=== PATIENT | male | born 1940 | race Caucasian/White ===

== ENCOUNTER → 2023-03-04 | Outpatient (CLI) | payer MEDICARE ==
[2023-03-04 13:29] LABS: BASOPHILS ABSOLUTE AUTO 0.04 K/mm3 (0.00-0.23); BASOPHILS PERCENT AUTO 1 % (0-2); EOSINOPHILS PERCENT AUTO 2 % (0-6); Hematocrit 41.6 % (37.0-53.0); IMMATURE GRAN ABSOLUTE AUTO 0.01 K/mm3 (0.00-0.10); IMMATURE GRAN PERCENT AUTO 0 % (0-1); LYMPHOCYTES ABSOLUTE AUTO 1.17 K/mm3 (0.84-5.20); LYMPHOCYTES PERCENT AUTO 26 % (21-46); MONOCYTES ABSOLUTE AUTO 0.51 K/mm3 (0.16-1.47); MONOCYTES PERCENT AUTO 12 % (4-13); Mean Corpuscular HGB 29.7 pg (26.0-34.0); Mean Corpuscular HGB Conc 33.7 g/dL (31.5-36.5); Mean Corpuscular Volume 88 fL (80-100); NEUTROPHILS ABSOLUTE AUTO 2.62 K/mm3 (1.96-9.15); NEUTROPHILS PERCENT AUTO 59 % (41-73); Platelet Count 213 K/mm3 (150-400); RDW Coefficient Variation 13.5 % (11.7-14.2); RDW Standard Deviation 43.8 fL (35.1-46.3); Red Blood Cell Count 4.72 M/mm3 (4.30-5.90); White Blood Cell Count 4.45 K/mm3 (4.00-11.30)
[2023-03-04 13:39] LABS: Albumin, Blood 4.2 g/dL (3.4-5.0); Albumin/Globulin Ratio 1.1 (0.8-1.8); Bilirubin, Total 0.7 mg/dL (0.1-1.0); Bun/Creatinine Ratio 16.2 (12.0-20.0); Calcium, Blood 9.1 mg/dL (8.5-10.1); Creatinine, Blood 1.3 mg/dL (0.60-1.20); Potassium, Blood 4.1 mmol/L (3.5-5.5); Total Protein, Blood 8.2 g/dL (6.4-8.2)
== END | disposition home or self-care (01) ==
LOC: LAB 13:24 → LAB SHORT 13:24
PROVIDERS: Family Medicine
DX: R22.41 Localized swelling, mass and lump, right lower limb (principal)
CPT/HCPCS: 80053; 85025

== ENCOUNTER 2023-03-12 09:56 | Emergency (ER) | payer MEDICARE ==
[~2023-03-12] VITALS: Ht 177.8 cm; Wt 83.9 kg
[2023-03-12 10:15] VITALS: BP 153/80
== END 2023-03-12 13:10 | disposition home or self-care (01) ==
LOC: ER 09:56
DX: I87.2 Venous insufficiency (chronic) (peripheral) (principal)
CPT/HCPCS: 72193; A9270; Q9967

== ENCOUNTER 2024-10-20 14:56 | Observation (INO) | payer MEDICARE ==
[~2024-10-20] VITALS: Ht 177.8 cm; Wt 82.5 kg
[2024-10-20] MEDS ORDERED: Acetaminophen 500 MG Tab PO ONE (17:00)
[2024-10-20 17:05] LABS: BASOPHILS ABSOLUTE AUTO 0.04 K/mm3 (0.00-0.23); BASOPHILS PERCENT AUTO 0 % (0-2); EOSINOPHILS ABSOLUTE AUTO 0.04 K/mm3 (0.00-0.68); EOSINOPHILS PERCENT AUTO 0 % (0-6); Hematocrit 36.4 % (37.0-53.0); Hemoglobin 11.8 g/dL (13.5-17.5); IMMATURE GRAN ABSOLUTE AUTO 0.08 K/mm3 (0.00-0.10); IMMATURE GRAN PERCENT AUTO 1 % (0-1); LYMPHOCYTES ABSOLUTE AUTO 1.02 K/mm3 (0.84-5.20); LYMPHOCYTES PERCENT AUTO 12 % (21-46); MONOCYTES PERCENT AUTO 18 % (4-13); Mean Corpuscular HGB 27.6 pg (26.0-34.0); Mean Corpuscular HGB Conc 32.4 g/dL (31.5-36.5); Mean Corpuscular Volume 85 fL (80-100); NEUTROPHILS ABSOLUTE AUTO 6.11 K/mm3 (1.96-9.15); NEUTROPHILS PERCENT AUTO 69 % (41-73); Platelet Count 244 K/mm3 (150-400); RDW Coefficient Variation 15.1 % (11.7-14.2); RDW Standard Deviation 47.2 fL (35.1-46.3); Red Blood Cell Count 4.27 M/mm3 (4.30-5.90); White Blood Cell Count 8.89 K/mm3 (4.00-11.30)
[2024-10-20 17:22] LABS: Influenza A, PCR NEGATIVE (NEGATIVE); Influenza B, PCR NEGATIVE (NEGATIVE); Resp Syncytial Virus, PCR NEGATIVE (NEGATIVE); SARS-Cov-2 (COVID-19) PCR, MMC NEGATIVE (NEGATIVE)
[2024-10-20 17:33] LABS: Albumin, Blood 2.4 g/dL (3.4-5.0); Albumin/Globulin Ratio 0.5 (0.8-1.8); Bilirubin, Total 0.8 mg/dL (0.1-1.0); Bun/Creatinine Ratio 20.4 (12.0-20.0); Calcium, Blood 8.5 mg/dL (8.5-10.1); Creatinine, Blood 1.03 mg/dL (0.60-1.20); Globulin, Blood 4.7 g/dL (2.2-4.0); Magnesium, Blood 2.2 mg/dL (1.6-2.4); Phosphorus, Blood 2.5 mg/dL (2.5-4.9); Potassium, Blood 4.1 mmol/L (3.5-5.5); Total Protein, Blood 7.1 g/dL (6.4-8.2)
[2024-10-20 18:27] LABS: Source, Urine Clean Catch
[2024-10-20 18:45] LABS: Appearance, Urine Clear (Clear); Bilirubin, Urine Neg (Neg); Blood, Urine Neg (Neg); Color, Urine Amber (P-Yellow); Glucose Qualitative, Urine Neg (Neg); Ketones, Urine Neg (Neg); Leukocyte Esterase, Urine Neg (Neg); Nitrite, Urine Neg (Neg); Protein, Urine 3+ (Neg); Urobilinogen, Urine 2+ (Normal)
[2024-10-20 18:53] LABS: Bacteria Few /hpf; Squamous Epithelial Cells Rare /hpf (Few); White Blood Cells, Urine 0-2 /hpf (0-5)
[2024-10-20 18:54] LABS: Amorphous Light (0-Heavy); Hyaline Casts 0-2 /lpf (0-2); Mucus Light (0-Heavy)
[2024-10-20] MEDS ORDERED: Ondansetron HCl 2 MG / ML 2ML Vial IV PRN (20:55)
[2024-10-20] MEDS ORDERED: NS 1,000 ML IV SCH (21:00)
[2024-10-20] MEDS ORDERED: Acetaminophen 500 MG Tab PO PRN (21:05)
[2024-10-20] MEDS ORDERED: NS 1,000 ML IV ONE (21:06)
[2024-10-20 22:50] VITALS: BP 133/71
--- NOTE | 2024-10-21 00:25 | NUR ---
ADMIT NOTE 84 YR OLD MALE ADMITTED TO FLOOR FROM THE ED WITH DX OF UPPER RESPIRATORY INFECTION. IN THE ED TEMP WAS 100, ON ARRIVAL TEMP 97.8 ORAL. ALERT TO QUESTIONS ASKED, LUNG SOUNDS DIMINISHED TO AUSCULTATION. VOICED "ARTHRIIS" OF RIGHT HAND. NOTE SOME DISCOMFORT OF RIGHT SIDE WELL. ED RN REPORTED PT WAS IN THE TRANSITION OF LIVING WITH FAMILY TO THAT OF GOING TO AN ADULT [facility], BUT THE [facility] WANTED PT ASSESSED AT THE HOSPITAL DUE TO INCREASED WEAKNESS AND DARK URINE, FEVER AND BACK PAIN. VSS. ORIENTED TO USE OF CALL LIGHT, RAILS UP X 2, CALL LIGHT IN REACH, BED IN LOW POSITION AND BED ALAARM ON FOR SAFETY. AGREES TO USE CALL LIGHT IF NEED OOB. WILL CONT TO MONITOR
--- NOTE | 2024-10-21 04:11 | NUR ---
BOAT WASHER SUMMARY ADMITTED TO FLOOR EARLIER IN THE SHIFT WITH DX OF UPPER RESP INFECTION, WAS FEBRILE IN THE ED, BUT HAS BEEN AFEBRILE SINCE ARRIVING ON FLOOR. VSS. ALERT TO QUESTIONS ASKED. NS INFUSING AT 100 ML/HR X ONE LITER. ED REPORTED HAD C/O WEAKNESS AND DARK URINE FOR A FEW DAYS PRIOR TO ADMISSION, WAS SCHEDULED TO MOVE INTO AN ADULT CENTER FROM LIVING WITH FAMILY, BUT WITH HIS SYMPTOMS, WAS ENCOURAGED TO FIRST BE ASSESSED/TREATED HERE AT THE HOSPITAL. HAS BEEN RESTING QUIETLY WITH FEW INTERRUPTIONS. ABLE TO REPOSITION SELF IN BED WITHOUT ASSIST. CALL LIGHT IN REACH, RAILS UP X 2 AND BED IN LOW POSITION FOR SAFETY. WILL CONTINUE TO MONITOR
[2024-10-21 05:37] VITALS: BP 146/71
[2024-10-21 07:19] VITALS: BP 132/67
[2024-10-21] MEDS ORDERED: Enoxaparin 40 MG/0.4 ML SYR SC SCH (09:00)
[2024-10-21] MEDS ORDERED: Aspirin 81 MG Chew PO SCH (09:00)
[2024-10-21 10:19] LABS: BASOPHILS ABSOLUTE AUTO 0.03 K/mm3 (0.00-0.23); BASOPHILS PERCENT AUTO 0 % (0-2); EOSINOPHILS ABSOLUTE AUTO 0.18 K/mm3 (0.00-0.68); EOSINOPHILS PERCENT AUTO 2 % (0-6); Hemoglobin 11.8 g/dL (13.5-17.5); IMMATURE GRAN ABSOLUTE AUTO 0.08 K/mm3 (0.00-0.10); IMMATURE GRAN PERCENT AUTO 1 % (0-1); LYMPHOCYTES ABSOLUTE AUTO 1.26 K/mm3 (0.84-5.20); LYMPHOCYTES PERCENT AUTO 14 % (21-46); MONOCYTES ABSOLUTE AUTO 1.47 K/mm3 (0.16-1.47); MONOCYTES PERCENT AUTO 17 % (4-13); Mean Corpuscular HGB Conc 32.8 g/dL (31.5-36.5); Mean Corpuscular Volume 85 fL (80-100); Mean Platelet Volume 12.1 fL (9.1-12.4); NEUTROPHILS PERCENT AUTO 66 % (41-73); Platelet Count 244 K/mm3 (150-400); RDW Coefficient Variation 14.9 % (11.7-14.2); RDW Standard Deviation 46.1 fL (35.1-46.3); Red Blood Cell Count 4.22 M/mm3 (4.30-5.90); White Blood Cell Count 8.82 K/mm3 (4.00-11.30)
[2024-10-21 11:16] LABS: Albumin, Blood 2.4 g/dL (3.4-5.0); Albumin/Globulin Ratio 0.5 (0.8-1.8); Bilirubin, Total 0.8 mg/dL (0.1-1.0); Bun/Creatinine Ratio 20.5 (12.0-20.0); Calcium, Blood 8.7 mg/dL (8.5-10.1); Creatinine, Blood 0.93 mg/dL (0.60-1.20); Globulin, Blood 4.6 g/dL (2.2-4.0); Potassium, Blood 3.9 mmol/L (3.5-5.5)
[2024-10-21] MEDS ORDERED: NS 1,000 ML IV SCH ×2 (12:50→13:35)
[2024-10-21 15:18] VITALS: BP 109/61
--- NOTE | 2024-10-21 18:07 | NUR ---
SHIFT SUMMARY: PT A&O X3. PLEASANT AND COOPERATIVE WITH CARE. PT URINE DARK YELLOW THIS AM. SPOKE WITH DR. VIDES ABOUT CONTINUING IV FLUIDS. CONTINUOUS FLUIDS INFUSING @ 125/HR. PT CHILDREN IN ROOM THIS SHIFT. UPDATES PROVIDED. PT WORKED WITH OCCUPATIONAL THERAPY - RECOMMENDING SNF. PT STATES HE HAS SMALL COUGH WHENEVER HE AWAKENS. NO EVIDENCE OF CONGESTION OF COUGH NOTED THIS SHIFT. CALL LIGHT IN REACH. BED IN LOWEST POSITION.
[2024-10-21 20:15] VITALS: BP 120/61
[2024-10-21] MEDS ORDERED: ATOR10 PO (22:07)
[2024-10-21] MEDS ORDERED: Prinivil10 MG PO (22:08)
--- NOTE | 2024-10-22 04:10 | NUR ---
SHIFT SUMMARY ADMITTED FOR WEAKNESS AND UPPER RESPIRATORY INFECTION. DNR CODE. IV FLUIDS ARE INFUSING. HE IS ON RA. REGULAR DIET. FEVER REPORTED ON PREVIOUS SHIFT. BEDREST AT THIS TIME DUE TO SEVERE WEAKNESS. AT TIMES HE WOKE UP CONFUSED THIS SHIFT CALLING OUT HIS SON'S NAME. HE HAS A HX OF DEMENTIA. A&O X2-3. HE IS EXPERIENCING FREQUENT URINATION THIS SHIFT. PLAN IS FOR PLACEMENT.
[2024-10-22 04:17] VITALS: BP 142/76
[2024-10-22 05:37] LABS: BASOPHILS ABSOLUTE AUTO 0.04 K/mm3 (0.00-0.23); BASOPHILS PERCENT AUTO 1 % (0-2); EOSINOPHILS ABSOLUTE AUTO 0.22 K/mm3 (0.00-0.68); EOSINOPHILS PERCENT AUTO 3 % (0-6); Hematocrit 34.7 % (37.0-53.0); Hemoglobin 11.3 g/dL (13.5-17.5); IMMATURE GRAN ABSOLUTE AUTO 0.09 K/mm3 (0.00-0.10); IMMATURE GRAN PERCENT AUTO 1 % (0-1); LYMPHOCYTES ABSOLUTE AUTO 1.33 K/mm3 (0.84-5.20); LYMPHOCYTES PERCENT AUTO 16 % (21-46); MONOCYTES ABSOLUTE AUTO 1.26 K/mm3 (0.16-1.47); MONOCYTES PERCENT AUTO 15 % (4-13); Mean Corpuscular HGB 27.6 pg (26.0-34.0); Mean Corpuscular HGB Conc 32.6 g/dL (31.5-36.5); Mean Corpuscular Volume 85 fL (80-100); Mean Platelet Volume 12.3 fL (9.1-12.4); NEUTROPHILS ABSOLUTE AUTO 5.44 K/mm3 (1.96-9.15); NEUTROPHILS PERCENT AUTO 65 % (41-73); Platelet Count 262 K/mm3 (150-400); RDW Coefficient Variation 14.9 % (11.7-14.2); Red Blood Cell Count 4.09 M/mm3 (4.30-5.90); White Blood Cell Count 8.38 K/mm3 (4.00-11.30)
[2024-10-22 07:16] LABS: Albumin, Blood 2.2 g/dL (3.4-5.0); Albumin/Globulin Ratio 0.5 (0.8-1.8); Bilirubin, Total 0.6 mg/dL (0.1-1.0); Calcium, Blood 8.6 mg/dL (8.5-10.1); Creatinine, Blood 1.05 mg/dL (0.60-1.20); Globulin, Blood 4.5 g/dL (2.2-4.0); Potassium, Blood 3.9 mmol/L (3.5-5.5); Total Protein, Blood 6.7 g/dL (6.4-8.2)
[2024-10-22 07:46] VITALS: BP 129/74
[2024-10-22] MEDS ORDERED: Atorvastatin 10 MG Tab PO SCH (09:00)
[2024-10-22] MEDS ORDERED: Lisinopril 10 MG Tab PO SCH (09:00)
[2024-10-22] MEDS ORDERED: Ipratropium/Albuterol SulF 2.5-0.5MG/3 ML Amp INH SCH (12:25)
[2024-10-22 15:14] VITALS: BP 119/64
--- NOTE | 2024-10-22 16:49 | NUR ---
AOX2-2 AND COOPERATIVE OF CARE. PT WORKED WITH PT AND WAS UP IN CHAIR FOR AWHILE TODAY. PT TOOK TWO PEOPLE WITH WALKER TO GET BACK TO BED. PT IS INCONTENT OF URINE. ABLE TO USE CALL LIGHT AND MAKE NEEDS KNOWN. WILL CONTINUE TO MONITOR.
[2024-10-22 20:42] VITALS: BP 132/67
[2024-10-22] MEDS ORDERED: GuaiFENesin 600 MG TabCR PO SCH (21:00)
--- NOTE | 2024-10-23 04:07 | NUR ---
SHIFT SUMMARY ADMITTED FOR WEAKNESS & UPPER RESPIRATORY INFECTION. DNR CODE. IV FLUIDS INFUSING ORDERED. PLAN IS FOR DC TO SNF, PENDING INSURANCE APPROVAL. REGULAR DIET, ALTHOUGH I HAVE BEEN GIVING HIM HIS RX IN [place]CE AT HIS REQUEST. A&O X2-3. HX OF DEMENTIA. HE IS A HEAVY 2 ASSIST TO BSC DUE TO HIS WEAKNESS. ON RA. HIS FWW IS IN THE ROOM.
[2024-10-23 04:41] VITALS: BP 112/88
[2024-10-23 07:34] VITALS: BP 129/105
[2024-10-23] MEDS ORDERED: Calcium Carbonate 500 MG Tab Chew PO ONE (12:50)
[2024-10-23] MEDS ORDERED: ASPI81CH PO (12:54)
[2024-10-23] MEDS ORDERED: MUCINEX600 MG PO (12:55)
--- NOTE | 2024-10-23 14:53 | NUR ---
PT TRANSFERED TO [facility] VIA WHEELCHAIR VAN. SON WAS IN ROOM TO TRANSFER PERSONAL BELONGINGS. PT AOX3 AND COOPERATIVE OF CARE. PT A HEAVY TO PERSON TRANSFER WITH [facility] AND WALKER. REPORT WAS CALLED TO REVIEVING BERLIN SCHULTZ AT [facility]. NO DISTRESS NOTED. PACKET SENT WITH PT.
== END 2024-10-23 14:23 | disposition hospice, inpatient (51) ==
LOC: ER 14:56 → ERHOLD 14:57 → MEDS 14:57
PROVIDERS: Emergency Medicine; Family Medicine; ADMIT Internal Medicine
DX: J06.9 Acute upper respiratory infection, unspecified (principal); R53.1 Weakness; G30.9 Alzheimer's disease, unspecified; F02.80 Dementia in other diseases classified elsewhere, unspecified severity, without behavioral disturbance, psychotic disturbance, mood disturbance, and anxiety; I10 Essential (primary) hypertension; Z86.73 Personal history of transient ischemic attack (TIA), and cerebral infarction without residual deficits
CPT/HCPCS: 0241U; 36415; 51798; 71045; 80053; 81001; 83605; 83735; 84100; 84145; 85025; 87040; 94640; 94664; 94760; 96372; 96374; 97112; 97116; 97162; 97166; 97530; 99285-25; A9270; G0378; J1650; J2405; J7030

== ENCOUNTER 2025-08-23 18:07 | Inpatient (IN) | payer MEDICARE | END 2025-08-27 13:05 | disposition home health service (06) | DRG 389 | LOC: ER 18:07 → ERHOLD 21:08 → SURS 22:45 | PROVIDERS: ADMIT Internal Medicine | PROC: 0D9670Z Drainage of Stomach with Drainage Device, Via Natural or Artificial Opening (ICD-10-PCS; principal; 2025-08-23) | DX: K56.609 Unspecified intestinal obstruction, unspecified as to partial versus complete obstruction (principal); E87.1 Hypo-osmolality and hyponatremia; D63.1 Anemia in chronic kidney disease; N18.30 Chronic kidney disease, stage 3 unspecified; G30.9 Alzheimer's disease, unspecified; F02.80 Dementia in other diseases classified elsewhere, unspecified severity, without behavioral disturbance, psychotic disturbance, mood disturbance, and anxiety; E86.0 Dehydration; R73.9 Hyperglycemia, unspecified; I49.3 Ventricular premature depolarization; Z90.49 Acquired absence of other specified parts of digestive tract; Z86.73 Personal history of transient ischemic attack (TIA), and cerebral infarction without residual deficits; Z79.1 Long term (current) use of non-steroidal anti-inflammatories (NSAID) ==

== ENCOUNTER 2025-09-05 07:54 | Inpatient (IN) | payer MEDICARE ==
[~2025-09-05] VITALS: Ht 172.7 cm; Wt 77.4 kg
[~2025-09-05 07:54] MED LIST: ACET325 PO; ACET500 PO; ASPI81CH PO; ATOR10 PO; BENZ100A PO; Calcium Carbon500 MG PO; FEROSUL325 M1 PO; Flomax0.4 MG PO; LOPE2C PO; MIRALAX17 GM PO; MUCINEX600 MG PO; NAPR550 PO; Prinivil10 MG PO; SUFLAVE POWDER1 EACH PO; [UNRECOGNIZED DRUG - OTHER] PO
[2025-09-05 08:39] LABS: BASOPHILS ABSOLUTE AUTO 0.05 K/mm3 (0.00-0.23); BASOPHILS PERCENT AUTO 1 % (0-2); EOSINOPHILS ABSOLUTE AUTO 0.11 K/mm3 (0.00-0.68); EOSINOPHILS PERCENT AUTO 2 % (0-6); Hematocrit 29.6 % (37.0-53.0); Hemoglobin 9.4 g/dL (13.5-17.5); IMMATURE GRAN ABSOLUTE AUTO 0.04 K/mm3 (0.00-0.10); IMMATURE GRAN PERCENT AUTO 1 % (0-1); LYMPHOCYTES ABSOLUTE AUTO 1.41 K/mm3 (0.84-5.20); LYMPHOCYTES PERCENT AUTO 20 % (21-46); MONOCYTES ABSOLUTE AUTO 0.74 K/mm3 (0.16-1.47); MONOCYTES PERCENT AUTO 11 % (4-13); Mean Corpuscular HGB Conc 31.8 g/dL (31.5-36.5); Mean Corpuscular Volume 86 fL (80-100); NEUTROPHILS ABSOLUTE AUTO 4.59 K/mm3 (1.96-9.15); NEUTROPHILS PERCENT AUTO 66 % (41-73); NRBC ABSOLUTE 0.00 K/mm3 (0.00-0.02); NRBC Auto 0.0 /100 WBC (0.0-0.2); Platelet Count 261 K/mm3 (150-400); RDW Coefficient Variation 15.9 % (11.7-14.2); RDW Standard Deviation 50.0 fL (35.1-46.3)
[2025-09-05 09:03] LABS: Alanine Aminotransfer (ALT/SGP 23.0 U/L (12-78); Albumin, Blood 2.8 g/dL (3.4-5.0); Albumin/Globulin Ratio 0.7 (0.8-1.8); Anion Gap 10.0 mmol/L (3-11); Aspartate Aminotrans (AST/SGOT 16.0 U/L (12-37); Bilirubin, Total 0.3 mg/dL (0.1-1.0); Blood Urea Nitrogen 26.0 mg/dL (8-24); CO2, Blood 26.0 mmol/L (21-32); Calcium, Blood 8.5 mg/dL (8.5-10.1); Chloride, Blood 107.0 mmol/L (98-108); Creatinine, Blood 1.15 mg/dL (0.60-1.20); Globulin, Blood 4.0 g/dL (2.2-4.0); Glucose, Blood 114.0 mg/dL (70-99); Magnesium, Blood 2.5 mg/dL (1.6-2.4); Potassium, Blood 4.6 mmol/L (3.5-5.5); Sodium, Blood 138.0 mmol/L (136-145); Total Protein, Blood 6.8 g/dL (6.4-8.2)
[2025-09-05] MEDS ORDERED: FLU VACC TS2025(65UP)/MF59C/PF 45 MCG/0.5 ML SYRINGE IM SCH (12:25)
[2025-09-05 14:40] VITALS: BP 130/76
--- NOTE | 2025-09-05 14:40 | NUR ---
ADMIT PT ADMITTED TO FLOOR. WATER & BROTH PROVIDED. PT ORIENTED TO ROOM. PT SON CALLED AND MESSAGE LEFT WITH NEW ROOM NUMBER. VS REVIEWED.
[2025-09-05] MEDS ORDERED: Polyethylene Glycol 3350 17 gm PO ONE (16:00)
[2025-09-05 16:05] VITALS: BP 112/61
--- NOTE | 2025-09-05 17:22 | NUR ---
SHIFT SUMMARY PT ADMITTED TODAY. DAUGHTER, YOVANNY, UPDATED ON PT. PT GIVEN MIRALAX IN PREPARATION FOR COLONOSCOPY TOMORROW. PLAN TO BE NPO AT 1100 ON 09/06/25. T PLEASANT & COOPERATIVE. RESTING IN BED. CALL LIGHT IN REACH. VS REVIEWED. NO OTHER ACUTE CHANGES IN ASSESSMENT AT THIS TIME.
[2025-09-05] MEDS ORDERED: Peg/Electrolytes 4,000 ML BTL PO ONE (18:00)
[2025-09-05 19:39] VITALS: BP 106/66
--- NOTE | 2025-09-06 02:24 | NUR ---
PATIENT HAS BEEN ABLE TO DRINK ALMOST HALF OF THE GOLYTLY. AT ABOUT 0200 HE STARTED HAVING SOME EMESIS, REDDISH STAINED.SMALL AMOUNTS HE STILL HAS HAD NO BM.
[2025-09-06 04:11] VITALS: BP 123/68
--- NOTE | 2025-09-06 05:04 | NUR ---
SHIFT SUMMARY; PATIENT SLEPT IN SHORT INTERVALS, WAS ABLE TO DRINK ALMOST HALF THE GOLYTLY, BUT OF THIS ENTRY, NO BM'S HE DID HAVE 1 BOUT OF EMESIS, A REDDISH LIQUID. ABD FIRM,
[2025-09-06 07:22] VITALS: BP 115/66
[2025-09-06] MEDS ORDERED: Peg/Electrolytes 4,000 ML BTL PO ONE (08:00)
--- NOTE | 2025-09-06 08:35 | NUR ---
CALL TO DR. HUMPHREY AT 0836 TO REPORT EPISODES OF EMESIS, 1/2 OF GOLYTELY FINISHED LAST NIGHT, NO BM AT ALL. GO LYTELY IS COMING UP. KATERIN COLORED EMESIS. NO ANSWER. WILL TRY AGAIN IN 20 MIN.
[2025-09-06] MEDS ORDERED: Enoxaparin 40 MG/0.4 ML SYR SC SCH (09:00)
--- NOTE | 2025-09-06 09:54 | NUR ---
[address] HUMPHREY TO NOTIFY OF PATIENT VOMITING AFTER 1/[address] GALL[address] HUMPHREY ADVISED TO HAVE PATIENT FINISH DAY SHIFT GOLYTELY CONTINUE ON WATER ONLY, REPORT FIRST BM, CALL IF HE VOMITS AGAIN.
[2025-09-06] MEDS ORDERED: Pantoprazole Sodium 40 MG Injection IV SCH (12:05)
[2025-09-06] MEDS ORDERED: Ondansetron HCl 2 MG / ML 2ML Vial IV PRN (12:25)
--- NOTE | 2025-09-06 13:55 | NUR ---
PT'S SON REQUESTED A PALLIATIVE CONSULT. ACCORDING TO THE PATIENT AND HIS SON, THE PATIENT WAS ADMITTED A WEEK AGO FOR NAUSEA, VOMITING AND SBO. THEY STATE HE WAS SENT BACK HOME ON A LIQUID DIET AND DIARRHEA THAT HAS CONTINUED UNTIL HE WAS READMITTED YESTERDAY WITH AN ENLARGED ABDOMEN, NAUSEA. HE IS CURRENTLY PREPPING FOR A COLONOSCOPY, BUT IS CURRENTLY VOMITING. REQUESTED DR. MANE LEON. UNSURE IF THIS HAS BEEN GIVEN YET. THIS PC RN WILL FOLLOW UP WITH BEDSIDE RN.
[2025-09-06 15:54] VITALS: BP 106/63
--- NOTE | 2025-09-06 18:04 | NUR ---
SHIFT SUMMARY PATIENT IS A&0X3-4, ON ROOM AIR WITHOUT TELE. HE IS BEDREST, CURRENTLY AND USES A WHEELCHAIR AT HIS BASELINE. FINISHED GOLYTELY TODAY, SUCCESSFULLY TAKING IN THE ENTIRE LAST 1/2 GALLON WITHOUT AN EPISODE OF EMESIS. HE STOOLED 3 RATHER LARGE TIMES, THE STOOL WAS LIQUID BROWN. ADVISED TO CONTINUE THE GOLYTELY TOMORROW UNTIL HE STOOLS CLEAR, AND THEN WE CAN D/C IT AND CALL HIM RIGHT AWAY. PATIENT IS OKAY TO HAVE CLEAR LIQUIDS THIS EVENING. PATIENT HAS BEEN COOPERATIVE WITH CARE AND USES THE CALL SYSTEM APPROPRIATELY. HIS ABDOMEN HAS NOT BEEN PAINFUL TO PALPATION. HIS BED IS LOW AND LOCKED, CALL LIGHT IN REACH.
[2025-09-06 20:56] VITALS: BP 111/59
--- NOTE | 2025-09-07 03:03 | NUR ---
SHIFT SUMMARY NO ACUTE EVENTS DURING THIS SHIFT. NPO AFTER MIDNIGHT WITH WATER AND ICE CHIPS ONLY FOR A UPPER ENDOSCOPY AND COLONOSCOPY AT 1100. ENCOURAGING FLUIDS. PT A/O X2-3, PLEASANTLY CONFUSED. REORIENTED. BED AT THE LOWEST POSITION, CALL LIGHT W/I REACH.
[2025-09-07 04:21] VITALS: BP 114/61
[2025-09-07 07:57] VITALS: BP 108/60
[2025-09-07] MEDS ORDERED: Peg/Electrolytes 4,000 ML BTL PO ONE ×2 (08:00→14:00)
--- NOTE | 2025-09-07 17:38 | NUR ---
SHIFT SUMMARY PATIENT IS A&OX3, ON ROOM AIR WITHOUT TELE. HE IS BEDREST. MORE BROWN STOOLS TODAY, HAS HAD ANOTHER 1/2 GALLON OF THE GOLYTELY. BREAKING FROM GOLKayentisLY FOR THE EVENING, HE IS TO HAVE CLEAR LIQUID DINNER, AND WILL RETURN TO GOLYTELY DRINK IN THE MORNING. PATIENT HAS BEEN COOPERATIVE WITH CARE AND USES THE CALL SYSTEM APPROPRIATELY. HIS ABDOMEN IS STILL NOT PAINFUL TO PALPATION. HIS BED IS LOW AND LOCKED, CALL LIGHT IN REACH.
[2025-09-07 19:54] VITALS: BP 109/58
[2025-09-08] VITALS (17 sets, daily range): BP systolic 92–158; BP diastolic 46–66
[2025-09-08] MEDS ORDERED: ePHEDrine Sulfate 50 MG/ML 1ML Injection IV ONE (03:24)
[2025-09-08] MEDS ORDERED: Phenylephrine HCl 100 MCG/ML-NS 10MLSYR (1MG/10ML) IV ONE (03:24)
--- NOTE | 2025-09-08 03:49 | NUR ---
SHIFT SUMMARY NO ACUTE EVENTS DURING THIS SHIFT. NO PO INTAKE DURING THIS SHIFT. PT CONTINUES TO HAVE BROWN, LOOSE LIQUID STOOL. PT USES BED BUSCH, CONTINENT/INCONTINENT OF URINE, WEARING ATTENDS. PT IS ABLE TO MAKE HIS NEEDS KNOWN AND COOPERATIVE WITH CARE. IN BEDREST. ABD MODERATELY DISTENDED, SOFT WHEN PALPATING. NO N/V NOTED. BED AT THE LOWEST POSITION, CALL LIGHT WITHIN REACH.
[2025-09-08 06:09] LABS: BASOPHILS ABSOLUTE AUTO 0.04 K/mm3 (0.00-0.23); BASOPHILS PERCENT AUTO 1 % (0-2); EOSINOPHILS ABSOLUTE AUTO 0.37 K/mm3 (0.00-0.68); EOSINOPHILS PERCENT AUTO 7 % (0-6); Hematocrit 25.6 % (37.0-53.0); Hemoglobin 8.2 g/dL (13.5-17.5); IMMATURE GRAN ABSOLUTE AUTO 0.01 K/mm3 (0.00-0.10); IMMATURE GRAN PERCENT AUTO 0 % (0-1); LYMPHOCYTES ABSOLUTE AUTO 1.66 K/mm3 (0.84-5.20); LYMPHOCYTES PERCENT AUTO 32 % (21-46); MONOCYTES ABSOLUTE AUTO 0.66 K/mm3 (0.16-1.47); MONOCYTES PERCENT AUTO 13 % (4-13); Mean Corpuscular HGB Conc 32.0 g/dL (31.5-36.5); Mean Corpuscular Volume 86 fL (80-100); NEUTROPHILS ABSOLUTE AUTO 2.39 K/mm3 (1.96-9.15); NEUTROPHILS PERCENT AUTO 47 % (41-73); NRBC ABSOLUTE 0.00 K/mm3 (0.00-0.02); NRBC Auto 0.0 /100 WBC (0.0-0.2); Platelet Count 241 K/mm3 (150-400); RDW Coefficient Variation 15.6 % (11.7-14.2); RDW Standard Deviation 49.1 fL (35.1-46.3)
[2025-09-08 06:27] LABS: Anion Gap 9.0 mmol/L (3-11); Blood Urea Nitrogen 19.0 mg/dL (8-24); CO2, Blood 29.0 mmol/L (21-32); Calcium, Blood 8.4 mg/dL (8.5-10.1); Chloride, Blood 103.0 mmol/L (98-108); Creatinine, Blood 1.2 mg/dL (0.60-1.20); Glucose, Blood 82.0 mg/dL (70-99); Potassium, Blood 3.8 mmol/L (3.5-5.5); Sodium, Blood 137.0 mmol/L (136-145)
[2025-09-08] MEDS ORDERED: Peg/Electrolytes 4,000 ML BTL PO ONE (08:00)
--- NOTE | 2025-09-08 13:28 | NUR ---
[address] lee to notify of clear stool and last gulp at 11am. notified day surgery on orders from rosa directly after.
[2025-09-08] MEDS ORDERED: NS 500 ML IV SCH (14:00)
--- NOTE | 2025-09-08 18:17 | NUR ---
SHIFT SUMMARY PATIENT IS A&OX3, ON ROOM AIR WITHOUT TELE. HE IS PLEASANT AND COOPERATIVE WITH CARE. HE DID FINALLY BEGIN TO PASS CLEAR STOOL TODAY AND WAS SUBSEQUENTLY MADE NPO AT 11AM, [facility] AND DAY SURGERY NOTIFIED. HE WAS TAKEN FOR UPPER AND LOWER SCOPE AT 1700. BOTH HIS SON AND DAUGHTER HAVE VISITED TODAY. PATIENT REMAINS IN GOOD SPIRITS. CALLS APPROPRIATELY. CONTINUES TO BE ON BEDREST. IS CURRENTLY DOWN IN DAY SURGERY.
--- NOTE | 2025-09-08 18:26 | NUR ---
09/08/251825 Laura Shelton INTO ENDO 2 1808- CONFIRMED AND REVIEWED H&P, MEDCICATIONS, ALLERGIES, MEDICAL HISTORY, RESPIRATORY HISTORY, VITAL SIGNS, 3-LEAD EKG, CONSENTS, AND PHYSICIAN ORDERS. PATIENT CONFIRMS NPO STATUS AND AGREES WITH SCHEDULED PROCEDURE. MONITOR INTACT WITH CONTINUOUS PULSE OXIMETRY, CAPNOGRAPHY, 3-LEAD EKG, INTERMITTENT BP. SUPPLEMENTAL O2 TO BE TITRATED THROUGHOUT PROCEDURE TO MAINTAIN O2 SATURATION ABOVE 90%. PATIENT DETERMINED TO BE ASA APPROPRIATE FOR MAC. DR. BUTTERFIELD PROVIDING MAC-SEE ANESTHESIA RECORD.
[2025-09-08] MEDS ORDERED: NS 1,000 ML IV ONE (22:40)
[2025-09-08 22:59] LABS: Hematocrit 26.4 % (37.0-53.0); Hemoglobin 8.4 g/dL (13.5-17.5)
[2025-09-09] VITALS (30 sets, daily range): BP systolic 90–116; BP diastolic 40–63
[2025-09-09] MEDS ORDERED: NS 1,000 ML IV SCH (01:25)
[2025-09-09] MEDS ORDERED: NS 500 ML IV ONE (05:00)
[2025-09-09 05:10] LABS: Hematocrit 25.3 % (37.0-53.0); Hemoglobin 8.2 g/dL (13.5-17.5)
--- NOTE | 2025-09-09 06:18 | NUR ---
SHIFT SUMMARY PT A&Ox3. PT ARRIVED BACK FROM [facility] AROUND 2300. DR RAI ROUNDED AND SPOKE WITH PT AND FAMILY AT BEDSIDE ABOUT RESULTS OF SCOPE. POST OP VITALS DONE AND PT'S BP WAS SLOWLY DROPPING WITH A MAP AROUND 65. HOSPITALIST NOTIFIED AND ORDER GIVEN FOR STAT H&H AND 1L BOLUS. BP IMPROVED SLIGHTLY BUT CONTINUED TO TREND DOWN. HOSPITALIST AGAIN NOTIFIED AND ORDER GIVEN FOR NS @ 150ml/hr AND MIDODRINE. BP STILL DID NOT IMPROVE SO HOSPITALIST NOTIFIED AND ANOTHER 500ml BOLUS GIVEN. PT'S MAP INCREASED SLIGHTLY OVER 70. NO C/O PAIN. H&H STABLE. BED ALARM ON. BED IN LOWEST POSITION AND CALL LIGHT IN REACH.
--- NOTE | 2025-09-09 14:20 | NUR ---
1408- THIS RN NOTIFIED ALLIE OF PT'S BP=94/40 (A MANUAL) AND MAP=58. MD SAID TO BULUS AT 999ML/HR THE REMAINING 350ML IN THE NS BAG HANGING CURRENTLY. PT DENIES ANY DIZZINESS OR ANY CHANGES. PT IS ASYMPTOMATIC. SON AND DAUGHTER AT BED SIDE. ALL FAMILY/PT INFORMED OF PT'S PLAN AT THIS POINT.
[2025-09-09] MEDS ORDERED: NS 350 ML IV ONE (14:25)
--- NOTE | 2025-09-09 14:38 | NUR ---
1435- BOLUS COMPLETE AND PT'S BP=95/51 MAP=65. ALLIE NOTIFIED. STATED TO RECHECK PT'S BP IN 20 MINS AND CALL WITH RESULTS. PT/FAMILY INFORMED.
--- NOTE | 2025-09-09 15:12 | NUR ---
1512- THIS RN NOTIFIED MD PT'S BP MAP=61. MD WANTS ANOTHER BP IN BOTH ARMS IN 15 MINS.
--- NOTE | 2025-09-09 15:41 | NUR ---
1542- THIS RN CALLED AND NOTIFIED MD KELLEY PT'S BP MAP IN R ARM=64 AND LEFT ARM=72. MD KELLEY GAVE VERBAL TO GIVE X1 5MG MIDODRINE NOW AND SHE WILL CHANGE THE SCHEDULED MIDODRINE TO 10MG TID.
--- NOTE | 2025-09-09 18:30 | NUR ---
SUMMARY- AAOX3-4. ON RA. NO COMPLAINTS THIS SHIFT. BEDREST. PT'S BP HAS IMPROVED THIS EVENING. GOOD APPETITE. PT TURNED Q 2 HRS.
--- NOTE | 2025-09-09 23:23 | NUR ---
CHART CORRECTION. THIS PT DOES NOT HAVE A BUCHANNA IN PLACE. EARLIER DOCUMENTATION IN BLADDER MANAGMENT WAS DONE ON WRONG PT.
[2025-09-10 03:38] VITALS: BP 111/52
--- NOTE | 2025-09-10 04:45 | NUR ---
SHIFT SUMMARY PT A&Ox3-4. NO C/O PAIN. BLOOD PRESSURE IMPROVED AND MAP REMAINED ABOVE 70 T/O NIGHT. PT ABLE TO SLEEP MOST OF THE NIGHT. REPOSITIONED NEEDED. VSS. BED IN LOWEST POSITION AND CALL LIGHT IN REACH.
[2025-09-10 07:18] LABS: BASOPHILS ABSOLUTE AUTO 0.03 K/mm3 (0.00-0.23); BASOPHILS PERCENT AUTO 1 % (0-2); EOSINOPHILS ABSOLUTE AUTO 0.26 K/mm3 (0.00-0.68); EOSINOPHILS PERCENT AUTO 5 % (0-6); Hematocrit 26.2 % (37.0-53.0); Hemoglobin 8.1 g/dL (13.5-17.5); IMMATURE GRAN ABSOLUTE AUTO 0.02 K/mm3 (0.00-0.10); IMMATURE GRAN PERCENT AUTO 0 % (0-1); LYMPHOCYTES ABSOLUTE AUTO 1.65 K/mm3 (0.84-5.20); LYMPHOCYTES PERCENT AUTO 31 % (21-46); MONOCYTES ABSOLUTE AUTO 0.68 K/mm3 (0.16-1.47); MONOCYTES PERCENT AUTO 13 % (4-13); Mean Corpuscular HGB Conc 30.9 g/dL (31.5-36.5); Mean Corpuscular Volume 88 fL (80-100); NEUTROPHILS ABSOLUTE AUTO 2.70 K/mm3 (1.96-9.15); NEUTROPHILS PERCENT AUTO 51 % (41-73); NRBC ABSOLUTE 0.00 K/mm3 (0.00-0.02); NRBC Auto 0.0 /100 WBC (0.0-0.2); Platelet Count 196 K/mm3 (150-400); RDW Coefficient Variation 16.0 % (11.7-14.2); RDW Standard Deviation 51.8 fL (35.1-46.3)
[2025-09-10 07:37] VITALS: BP 122/61
[2025-09-10 07:55] LABS: Anion Gap 6.0 mmol/L (3-11); Blood Urea Nitrogen 11.0 mg/dL (8-24); CO2, Blood 27.0 mmol/L (21-32); Calcium, Blood 7.8 mg/dL (8.5-10.1); Chloride, Blood 111.0 mmol/L (98-108); Creatinine, Blood 1.16 mg/dL (0.60-1.20); Ferritin, Serum 104.0 ng/mL (26-388); Glucose, Blood 144.0 mg/dL (70-99); Potassium, Blood 3.8 mmol/L (3.5-5.5); Sodium, Blood 140.0 mmol/L (136-145); Total Iron Binding Capacity 176.0 ug/dL (250-450)
[2025-09-10] MEDS ORDERED: OMEP20ER PO (12:00)
[2025-09-10] MEDS ORDERED: DOCUSATE-SENNA (13:15)
--- NOTE | 2025-09-10 13:30 | NUR ---
DISCHARGE NOTE: A&OX4 AT TIME OF DISCHARGE. IV REMOVED. BELONGINGS GATHERED BY PT SON AND DAUGHTER. EDUCATION PROVIDED WITH FOLLOW UP APPOINTMENT DETAILS. MEDICATIONS [facility] TO [facility]. PT ESCORTED OUT VIA W/C BY STAFF.
== END 2025-09-10 13:19 | disposition home or self-care (01) | DRG 394 ==
LOC: ER 07:54 → MEDS 07:55 → ENPENDDIS 09-10 10:23 → MEDS 09-10 13:19
PROVIDERS: Family Medicine; Internal Medicine Gastroenterology; Nurse Practitioner Acute Care; Student in an Organized Health Care Education/Training Program; ADMIT Internal Medicine
PROC: 0DBK8ZZ Excision of Ascending Colon, Via Natural or Artificial Opening Endoscopic (ICD-10-PCS; principal; 2025-09-08 11:45)
PROC: 0DB58ZX Excision of Esophagus, Via Natural or Artificial Opening Endoscopic, Diagnostic (ICD-10-PCS; 2025-09-08 11:45)
PROC: 0DBH8ZZ Excision of Cecum, Via Natural or Artificial Opening Endoscopic (ICD-10-PCS; 2025-09-08 11:45)
PROC: 0T9B70Z Drainage of Bladder with Drainage Device, Via Natural or Artificial Opening (ICD-10-PCS; 2025-09-09)
DX: K63.5 Polyp of colon (principal); Q43.8 Other specified congenital malformations of intestine; K20.80 Other esophagitis without bleeding; K22.89 Other specified disease of esophagus; K59.09 Other constipation; G30.9 Alzheimer's disease, unspecified; Z66 Do not resuscitate; F02.80 Dementia in other diseases classified elsewhere, unspecified severity, without behavioral disturbance, psychotic disturbance, mood disturbance, and anxiety; D63.1 Anemia in chronic kidney disease; N18.30 Chronic kidney disease, stage 3 unspecified; K44.9 Diaphragmatic hernia without obstruction or gangrene; G20.A1 Parkinson's disease without dyskinesia, without mention of fluctuations; I12.9 Hypertensive chronic kidney disease with stage 1 through stage 4 chronic kidney disease, or unspecified chronic kidney disease; E78.5 Hyperlipidemia, unspecified; I95.9 Hypotension, unspecified; Z90.49 Acquired absence of other specified parts of digestive tract; Z86.73 Personal history of transient ischemic attack (TIA), and cerebral infarction without residual deficits
CPT/HCPCS: 36415; 74177; 80048; 80053; 82607; 82728; 82746; 83540; 83550; 83735; 85014; 85018; 85025; 86850; 86900; 86901; 88305; 93005; 93010; 96374; 96375; 96376; 99285-25; A9270; G0378; J1650; J2371; J2405; J2470; J2704; J7030; J7040; Q9967